=== PATIENT | male | born 1950 | race Caucasian/White ===

== ENCOUNTER 2020-03-22 13:16 | Observation (INO) | payer MEDICARE, OTHER ==
--- NOTE | 2020-03-22 13:37 | ED ---
Upper Extremity HPI - General Chief Complaint: Extremity Injury, Upper Stated Complaint: wrist pain Time Seen by Provider: 03/22/20 13:28 Source: patient, RN notes reviewed Mode of arrival: ambulatory Limitations: no limitations - History of Present Illness Initial Comments: This a 70-year-old male presents emergency Department chief complaint of fall o ff ladder. Patient states is approximate 4 feet up off the ground states that the ladder started shift any fell down onto the ground onto his right wrist. Patient states his happened approximately 90 minutes ago. Denies any head injury no other injuries other than his right wrist. He is [id number]. He states that it's very difficult to move his wrist secondary to pain. - Related Data Allergies Allergy/AdvReac Type Severity Reaction Status Date / Time No Known Allergies Allergy Verified 03/22/20 13:25 Review of Systems ROS Statement: Those systems with pertinent positive or pertinent negative responses have been documented in the HPI. ROS Other: All systems not noted in ROS Statement are negative. Past Medical History Past Medical History: Hypertension Additional Past Medical History / Comment(s): Stroke History of Any Multi-Drug Resistant Organisms: None Reported Past Psychological History: No Psychological Hx Reported Smoking Status: Never smoker Past Alcohol Use History: Daily Past Drug Use History: None Reported General Exam Limitations: no limitations General appearance: alert, in no apparent distress Head exam: Present: atraumatic, normocephalic, normal inspection Neck exam: Present: normal inspection. Absent: tenderness, meningismus, lymphadenopathy Respiratory exam: Present: normal lung sounds bilaterally. Absent: respiratory distress, wheezes, rales, rhonchi, stridor Cardiovascular Exam: Present: regular rate, normal rhythm, normal heart sounds. Absent: systolic murmur, diastolic murmur, rubs, gallop, clicks Extremities exam: Present: other (Right wrist there is moderate swelling, tenderness with palpation pulses equal bilaterally Refill less than 2 seconds there is no proximal forearm tenderness no hand tenderness.) Course Vital Signs 03/22/20 13:23 Temperature 98.2 F Pulse Rate 66 Respiratory 16 Rate Blood Pressure 161/82 O2 Sat by Pulse 98 Oximetry Procedures - Orthopedic Splinting/Casting Injury #1 Side: right Upper Extremity Injury Location: wrist Upper Extremity Immobilizer: sugar tong splint, synthetic pre-padded splint Medical Decision Making - Medical Decision Making Patient was splinted in a sugar tong splint. Patient was evaluated by orthopedics. Patient will be admitted for surgery tomorrow Disposition Clinical Impression: Displaced fracture of distal end of right radius Disposition: ADMITTED IP TO THIS HOSP Condition: Stable Referrals: Nabeel Decker MD [Primary Care Provider] - 1-2 days Time of Disposition: 14:30
[2020-03-22] MEDS ORDERED: HYDROmorphone 0.5 MG/0.5 ML SYRINGE IVP STA ×2 (14:04→15:00)
--- NOTE | 2020-03-22 14:07 | XR ---
EXAMINATION TYPE: XR wrist complete RT DATE OF EXAM: 03/22/2020 COMPARISON: NONE HISTORY: Fall. Pain. TECHNIQUE: 4 views FINDINGS: There is impacted transverse comminuted fracture of the distal radial metaphysis. There is 1 cm posterior displacement of the distal major fragment. There is no dislocation. There is fracture of the ulnar styloid process. There is 12 mm lateral displacement of the radius fracture fragment. IMPRESSION: Impacted displaced comminuted distal radius fracture. Ulnar styloid process fracture.
[2020-03-22] MEDS ORDERED: NALOXONE 0.4 MG/ML 1 ML VIAL IV PRN (14:09)
[2020-03-22] MEDS ORDERED: HYDROmorphone 0.5 MG/0.5 ML SYRINGE IVP PRN (14:09)
[2020-03-22] MEDS ORDERED: ONDANSETRON 4 MG/2 ML VIAL IVP PRN (14:09)
--- NOTE | 2020-03-22 14:22 | P.HPOR ---
History of Present Illness H&P Date: 03/22/20 Chief Complaint: Right distal radius fracture Patient is a 62-year-old male who presented to [facility] in hospital today after falling off a ladder at home. Patient landed on the right side during the fall. Patient had immediate pain and deformity of the right wrist, he reported to the hospital. He denied hitting his head during the fall or losing consciousness. Images and lab tests were done, they demonstrated a comminuted and displaced right distal radius fracture. I was contacted by the emergency room staff about the patient, I then went to the patient in the emergency room. He is resting comfortably at bedside, his is present. Obvious pain and swelling he admits to the right upper extremity. He denies any other orthopedic complaints at this time. He has no previous surgery involving the right upper extremity. Past medical history, he has a history of stroke, he takes a full aspirin for that. Review of Systems Constitutional: Reports as per HPI Past Medical History Past Medical History: Hypertension Additional Past Medical History / Comment(s): Stroke History of Any Multi-Drug Resistant Organisms: None Reported Past Psychological History: No Psychological Hx Reported Smoking Status: Never smoker Past Alcohol Use History: Daily Past Drug Use History: None Reported Medications and Allergies Allergies Allergy/AdvReac Type Severity Reaction Status Date / Time No Known Allergies Allergy Verified 03/22/20 13:25 Physical Examination Right upper extremity: Obvious soft tissue swelling and deformity of the right upper extremity No open lesions are present Sensation to light touch throughout the extremities intact, radial pulses 2+ No pain with palpation around the elbow or shoulder Range of motion of the wrist is limited due to pain Results - Diagnostic results Wrist/Hand x-ray: report reviewed ( x-rays of the wrist demonstrated obvious comminuted and displaced right distal radius fracture ), image reviewed Assessment and Plan Assessment: Displacing comminuted right distal radius fracture Status post fall from 4 feet Other medical comorbidities Plan: I discussed the case with Dr. Yip this including physical exam findings and imaging studies. We will like to proceed with surgical intervention, specifically open reduction internal fixation of the right radius fracture, plan is to proceed with an 03/23/2020 Due to the amount of comminution and displacement, a computed tomography scan of the wrist will be obtained Treatment options were discussed the patient, risk and benefits were discussed the patient, he is in good understanding like to proceed Patient will be admitted to the hospital with plan for surgical intervention on 03/23/2020 Internal medicine will be consulted Pain control, oral and IV as needed Obtain consent Hopeful discharge home tomorrow after surgery Time with Patient: Less than 30
[2020-03-22] MEDS: ONDANSETRON 4 MG/2 ML VIAL IVP STA (14:31)
--- NOTE | 2020-03-22 14:56 | CT ---
EXAMINATION TYPE: CT wrist RT wo con DATE OF EXAM: 03/22/2020 COMPARISON: Today HISTORY: Right wrist pain post trauma CT DLP: 54.1 mGycm Automated exposure control for dose reduction was used. Multiple axial sections were obtained from the mid radius to the distal metacarpals with no contrast. There is impacted comminuted fracture of the distal radial metaphysis. There is transverse fracture t hrough the metaphysis with impaction of the distal fragments. There is 9 mm posterior displacement an d approximate 9 mm of impaction of the distal radius major fragment. There is no dislocation at the r adiocarpal joint. The carpal bones appear intact. The visualized metacarpals are intact. There is non displaced fracture of the ulnar styloid process. There is soft tissue swelling around the carpus. IMPRESSION: Acute impacted displaced comminuted fracture of the distal radius as above. Nondisplaced ulnar styloi d process fracture. No dislocation.
[2020-03-22 16:16] LABS: Basophils % (A) 0 %; Eosinophils # (A) 0.1 k/uL (0-0.7); Eosinophils % (A) 1 %; HCT 42.3 % (39.0-53.0); HGB 13.5 gm/dL (13.0-17.5); Lymphocytes # (A) 0.8 k/uL (1.0-4.8); Lymphocytes % (A) 10 %; MCH 30.6 pg (25.0-35.0); MCV 95.6 fL (80.0-100.0); Monocytes # (A) 0.4 k/uL (0-1.0); Monocytes % (A) 4 %; Neutrophils % (A) 84 %; Platelet Count 275 k/uL (150-450); RBC 4.43 m/uL (4.30-5.90); RDW 13.3 % (11.5-15.5); WBC 8.4 k/uL (3.8-10.6)
[2020-03-22 16:21] LABS: Prothrombin Time 10.2 sec (9.0-12.0)
[2020-03-22] MEDS: HYDROcodone/APAP 5-325MG 1 EACH TAB PO PRN (19:43)
--- NOTE | 2020-03-22 19:56 | P.CONS ---
History of Present Illness - Reason for Consult Consult date: 03/22/20 Medical clearance for surgery and medical management. Requesting physician: Dima Yip - Chief Complaint Distal radius fracture, hypertension, history of CVA with right-sided weakn - History of Present Illness 70-year-old male one of my office patient with past medical history of hypertension, hyperlipidemia, and CVA with slight right-sided weakness who jimmy arently had fallen off a ladder at home and landed on his right side patient developed severe pain and discomfort and swelling of the right wrist had no other orthopedic injury no headache, no last self-consciousness or any Neuro complains. Patient ended up coming to the emergency department at [facility], x-ray showed comminuted right distal radius fracture. Patient was seen or to and admitted to Dr. Yip service he will be going for surgery tomorrow. Patient has been doing very well medically no major complaint lately was seen in the office last time few month ago and has been on minimal medication no cardiac history hemodynamically has been stable. Review of Systems CONSTITUTIONAL: Well-developed no acute respiratory distress. EYES: No icterus sclerae, no conjunctivitis. EARS, NOSE, MOUTH, THROAT, and FACE: No sore throat, lymphadenopathy, carotid bruits or deformity. RESPIRATORY: No SOB cough or wheezes. CARDIOVASCULAR: No CP, Palpitation, PND, Orthopnea, or angina. GASTROINTESTINAL: No Abd pain, Nausea or vomiting, no Diarrhea or constipation, No GI Bleed, no distention or masses. GENITOURINARY: Negative for Hematuria or UTI, no kidney stones. INTEGUMENT/BREAST: Pain and discomfort and swelling in the right wrist area. HEMATOLOGIC/LYMPHATIC: Negative for bleed or purpura. MUSCULOSKELTAL: Negative for Myalgia or arthralgia. NEURLOGICAL: No LOC, Sz or syncope, blurred vision dizziness or abnormality.. History of stroke still have slight residual with weakness of the right side. BEHAVIORAL/PSYCH: Negative. ENDOCRINE: Negative. Past Medical History Past Medical History: Hypertension Additional Past Medical History / Comment(s): Stroke 2018 some right sided weakness History of Any Multi-Drug Resistant Organisms: None Reported Past Psychological History: No Psychological Hx Reported Smoking Status: Never smoker Past Alcohol Use History: Daily Additional Past Alcohol Use History / Comment(s): Drinks 2-3 beers per day Past Drug Use History: None Reported Medications and Allergies Home Medications Medication Instructions Recorded Confirmed Type Ascorbic Acid [Vitamin C] 500 mg PO DAILY 03/22/20 03/22/20 History Atorvastatin [Lipitor] 40 mg PO DAILY 03/22/20 03/22/20 History Calcium Carbonate [Calcium] 600 mg PO DAILY 03/22/20 03/22/20 History Magnesium Oxide 400 mg PO DAILY 03/22/20 03/22/20 History Metoprolol Succinate [Toprol XL] 25 mg PO DAILY 03/22/20 03/22/20 History [place]-3 Fatty Acids/Fish Oil [Fish 1 cap PO DAILY 03/22/20 03/22/20 History Oil 1,000 mg Softgel] Allergies Allergy/AdvReac Type Severity Reaction Status Date / Time No Known Allergies Allergy Verified 03/22/20 15:22 Physical Exam Vitals: Vital Signs Temp Pulse Pulse Resp BP BP Pulse Ox 03/22/20 15:00 97.8 F 100 16 147/85 100 03/22/20 13:23 98.2 F 66 16 161/82 98 Intake and Output 03/22/20 03/22/20 03/22/20 06:59 14:59 22:59 Other: Weight 83.915 kg 83.915 kg General Appearance: Alert, cooperative, no distress, appears stated age. Neck HEENT: Supple, no lymphadenopathy, no thyroid enlargement, no carotid bruits. Lungs: Clear to auscultation without crackles or wheezes no rhonchi, no def ormity. Chest Wall: Chest wall normal expansion with deep inspiration no tenderness and no deformity was found on exam, no costochondral pain or discomfort. Heart: Regular rate and rhythm, S1, S2 normal, no murmur, rub or gallop. Back: Symmetric, no curvature, ROM normal, no CVA tenderness. Abdomen: Soft, non-tender, bowel sounds active all four quadrants, no masses, no organomegaly. Extremities: Significant pain and discomfort and swelling in the distal part of the wrist and the right side and has been in brace so far still able to move his finger positive pulse in the radius artery. Pulses: 2+ and symmetric. Skin: Skin color, texture, tugor normal, no rashes or lesions. Neurologic: Alert oriented x3 cranial nerves II through XII intact, slight weakness in the right side compared to the left side, no abnormal balance or gait. Results CBC & Chem 7: 03/22/20 15:52 03/22/20 15:52 Labs: Abnormal Lab Results - Last 24 Hours (Table) 03/22/20 Range/Units 15:52 Lymphocytes # 0.8 L (1.0-4.8) k/uL Assessment and Plan Assessment: 1 right distal radius fracture: Patient will be going for surgery with Dr. Estrada tomorrow for possible open reduction internal fixation. Continue pain management, continue fluid resuscitation, continue to monitor patient hemodynamic status next 24 hours. 2 clearance for surgery: No absolute contraindication for surgery patient has low risk for complication during and after surgery he is already on metoprolol succinate 25 mg a day which will be continue for now which will reduce cardiovascular complication during after surgery medication will be continue after surgery as well. 3 hypertension: Has been doing well on metoprolol. 4 hyperlipidemia: Continue atorvastatin. 5 BPH: Watch patient for any urinary retention. 6 history of CVA: Still have slight residual of the right side. 7 pain management: We'll continue patient on smaller dose of Dilaudid hydrocodone orally till after surgery. 8 DVT prophylaxis: Knee-high BLAIR hose and Venodyne boots will be use. 9 GI prophylaxis: Patient be on Pepcid 20 mg daily. CODE STATUS: Full code. Dr. Yip thank you much for the consult if I can be any further help to please let me know.
[2020-03-22] MEDS: HYDROmorphone 1 MG/ML 1 ML SYRINGE IVP PRN (20:32)
[2020-03-23] MEDS: HYDROmorphone 1 MG/ML 1 ML SYRINGE IVP PRN ×5 (00:54→22:35)
[2020-03-23] MEDS: FAMOTIDINE 20 MG TAB PO SCH (06:59)
[2020-03-23] MEDS: CALCIUM CARBONATE 500 MG CHEWABLE PO SCH (06:59)
[2020-03-23] MEDS: MAGNESIUM OXIDE 400 MG TAB PO SCH (07:00)
[2020-03-23] MEDS: METOPROLOL SUCCINATE (ER) 25 MG TAB.ER.24H PO SCH (07:01)
[2020-03-23] MEDS: ATORVASTATIN 40 MG TAB PO SCH (07:02)
[2020-03-23] MEDS: HYDROcodone/APAP 5-325MG 1 EACH TAB PO PRN (07:02)
[2020-03-23 07:20] LABS: Basophils % (A) 0 %; Eosinophils # (A) 0.2 k/uL (0-0.7); Eosinophils % (A) 3 %; HCT 43.5 % (39.0-53.0); HGB 14.2 gm/dL (13.0-17.5); Lymphocytes # (A) 1.3 k/uL (1.0-4.8); Lymphocytes % (A) 20 %; MCH 31.3 pg (25.0-35.0); MCHC 32.6 g/dL (31.0-37.0); Mean Platelet Volume 8.2; Monocytes # (A) 0.6 k/uL (0-1.0); Monocytes % (A) 8 %; Neutrophils # (A) 4.5 k/uL (1.3-7.7); Neutrophils % (A) 67 %; Platelet Count 271 k/uL (150-450); RBC 4.53 m/uL (4.30-5.90); RDW 12.9 % (11.5-15.5); WBC 6.7 k/uL (3.8-10.6)
[2020-03-23 07:29] LABS: Albumin 3.6 g/dL (3.5-5.0); Calcium 8.7 mg/dL (8.4-10.2); Potassium 5.1 mmol/L (3.5-5.1); Total Bilirubin 0.6 mg/dL (0.2-1.3); Total Protein 6.4 g/dL (6.3-8.2)
--- NOTE | 2020-03-23 10:49 | P.PN ---
Subjective Progress Note Date: 03/23/20 70-year-old male one of my office patient with past medical history of hypertension, hyperlipidemia, and CVA with slight right-sided weakness who apparently had fallen off a ladder at home and landed on his right side patient developed severe pain and discomfort and swelling of the right wrist had no other orthopedic injury no headache, no last self-consciousness or any Neuro complains. Patient ended up coming to the emergency department at [facility], x-ray showed comminuted right distal radius fracture. Patient was seen or to and admitted to Dr. Yip service he will be going for surgery tomorrow. Patient has been doing very well medically no major complaint lately was seen in the office last time few month ago and has been on minimal medication no cardiac history hemodynamically has been stable. 03/23: Patient is scheduled for open reduction internal fixation right distal radius fracture today with Dr. Yip. Patient denies any new complaints. Vital signs are stable. Blood pressure 121/70, heart rate 61, afebrile, pulse ox 97% on room air. Medication reconciliation has been reviewed. Patient is cleared for discharge following his procedure. Patient will follow-up with Dr. Decker in the office. Objective - Vital Signs Vital signs: Vital Signs Temp 98 F 03/23/20 04:32 Pulse 61 03/23/20 04:32 Resp 18 03/23/20 04:32 BP 121/70 03/23/20 04:32 Pulse Ox 97 03/23/20 04:32 Intake & Output 03/22/20 03/23/20 03/23/20 18:59 06:59 18:59 Weight 83.915 kg Other: # Voids 1 - Exam Review of Systems CONSTITUTIONAL: Well-developed no acute respiratory distress. Denies fever. Denies chills. EYES: No icterus sclerae, no conjunctivitis. EARS, NOSE, MOUTH, THROAT, and FACE: No sore throat, lymphadenopathy, carotid bruits or deformity. RESPIRATORY: No SOB cough or wheezes. CARDIOVASCULAR: No CP, Palpitation, PND, Orthopnea, or angina. GASTROINTESTINAL: No Abd pain, Nausea or vomiting, no Diarrhea or constipation, No GI Bleed, no distention or masses. GENITOURINARY: Negative for Hematuria or UTI, no kidney stones. INTEGUMENT/BREAST: Pain and discomfort and swelling in the right wrist area. HEMATOLOGIC/LYMPHATIC: Negative for bleed or purpura. MUSCULOSKELTAL: Negative for Myalgia or arthralgia. NEURLOGICAL: No LOC, Sz or syncope, blurred vision dizziness or abnormality.. History of stroke still have slight residual with weakness of the right side. BEHAVIORAL/PSYCH: Negative. ENDOCRINE: Negative. Physical Examination: General Appearance: Alert, cooperative, no distress, appears stated age. Neck HEENT: Supple, no lymphadenopathy, no thyroid enlargement, no carotid bruits. Lungs: Clear to auscultation without crackles or wheezes no rhonchi, no deformity. Chest Wall: Chest wall normal expansion with deep inspiration no tenderness and no deformity was found on exam, no costochondral pain or discomfort. Heart: Regular rate and rhythm, S1, S2 normal, no murmur, rub or gallop. Back: Symmetric, no curvature, ROM normal, no CVA tenderness. Abdomen: Soft, non-tender, bowel sounds active all four quadrants, no masses, no organomegaly. Extremities: Pain and discomfort and swelling in the distal part of the wrist on right side with brace so far still able to move his finger positive pulse in the radius artery. Pulses: 2+ and symmetric. Skin: Skin color, texture, tugor normal, no rashes or lesions. Neurologic: Alert oriented x3 cranial nerves II through XII intact, slight weakness in the right side compared to the left side, no abnormal balance or gait. - Labs CBC & Chem 7: 03/23/20 06:11 03/23/20 06:11 Labs: Abnormal Lab Results - Last 24 Hours (Table) 03/22/20 03/23/20 Range/Units 15:52 06:11 Lymphocytes # 0.8 L (1.0-4.8) k/uL BUN 21 H (9-20) mg/dL Creatinine 1.91 H (0.66-1.25) mg/dL Assessment and Plan Plan: 1 right distal radius fracture. Patient is scheduled for ORIF today. Anticipate he will be ready for discharge following procedure. 2 clearance for surgery: No absolute contraindication for surgery patient has low risk for complication during and after surgery he is already on metoprolol succinate 25 mg a day which will be continue for now which will reduce c ardiovascular complication during after surgery medication will be continue after surgery as well. 3 hypertension: Has been doing well on metoprolol. 4 hyperlipidemia: Continue atorvastatin. 5 BPH: Watch patient for any urinary retention. 6 history of CVA: Still have slight residual of the right side. 7 pain management: We'll continue patient on smaller dose of Dilaudid hydrocodone orally till after surgery. 8 DVT prophylaxis: Knee-high BLAIR hose and Venodyne boots will be use. 9 GI prophylaxis: Patient be on Pepcid 20 mg daily. CODE STATUS: Full code. Dr. Yip thank you much for the consult if I can be any further help to please let me know. Discharge plan: Home Impression and plan of care have been directed as dictated by the signing physician. Cee Pool nurse practitioner acting as scribe for signing physician.
[2020-03-23] MEDS ORDERED: LACTATED RINGERS 1,000 ML IV ONE (14:31)
[2020-03-23] MEDS: ONDANSETRON 4 MG/2 ML VIAL IVP STA (14:35)
[2020-03-23] MEDS ORDERED: PHENYLEPHRINE-0.9% NACL SYG 1 MG/10 ML SYRINGE ONE (15:36)
[2020-03-23] MEDS ORDERED: MIDAZOLAM 2 MG/2 ML VIAL ONE (15:36)
[2020-03-23] MEDS ORDERED: fentaNYL (PF) 50 MCG/ML 2 ML AMP ONE (15:36)
[2020-03-23] MEDS ORDERED: SUCCINYLCHOLINE CHLORIDE 100 MG/5 ML SYR IV ONE (15:36)
[2020-03-23] MEDS ORDERED: PROPOFOL 10 MG/ML 20 ML VIAL IV ONE (15:36)
[2020-03-23] MEDS ORDERED: LIDOCAINE 1% INJ 10MG/ML (20 ML MDV) ONE (15:36)
[2020-03-23] MEDS ORDERED: HYDROcodone/APAP 5-325MG 1 EACH TAB PO PRN (17:12)
[2020-03-23] MEDS ORDERED: ACETAMINOPHEN TAB 325 MG TAB PO PRN (17:12)
--- NOTE | 2020-03-23 17:19 | P.OP ---
Date of Procedure: 03/23/20 Preoperative Diagnosis: Right displaced intra-articular distal radius fracture Postoperative Diagnosis: Same Procedure(s) Performed: Open reduction and internal fixation right displaced intra-articular distal radius fracture3 part Implants: Arthrex standard with 3 hole volar plate Anesthesia: ESTER Surgeon: Dima Yip Bird Keeper #1: Ag Banks Estimated Blood Loss (ml): 3 Pathology: none sent Condition: stable Disposition: PACU Indications for Procedure: The patient is a 70-year-old [id number] gentleman who presents after falling 4 feet off a ladder injuring his right wrist. Upon evaluation he was noted of the significantly displaced/comminuted intra-articular right distal radius fracture. He discussion the risks and benefits of operative intervention was made with the patient. He opted to proceed with operative risks to include infection, neurovascular injury, development of blood clots, possible development of nonunion/malunion and need for subsequent procedures was discussed. Informed consent was obtained. Operative Findings: As below Description of Procedure: The patient was brought to the operating room, and after induction of general anesthesia the right upper extremity was prepped and draped in normal fashion. The tourniquet was inflated to 250 mmHg. A 7 cm volar radial incision was then made centered over the flexor carpi radialis. Skin was incised sharply. Subcu tissues were divided bluntly. Electrocautery was used for hemostasis. The [place]ell carpi radialis tendon sheath was then opened and the tendon was gently retracted ulnarly along with the radial artery retracted radially. The underlying fascia was opened. The contents the carpal canal were bluntly dissected and moved ulnarly. Pronator quadratus was elevated off the distal radius. The fracture site was identified and cleaned of clot and debris. This was reduced. A 3 hole volar plate was then provisionally placed with an olive wire and K wire distally to the watershed line. This is verified on the AP and lateral views with fluoroscopy. A 3.5 mm cortical screw was then inserted proximally. The distal pegs were then placed the appropriate drill, of the appropriate length. Proximal row was filled in a similar fashion. This is done with the aid of fluoroscopy. The remaining proximal screw holes were filled with 3.5 mm cortical screws the appropriate length. Good purchase obtained. Final fluoroscopic views to include AP/ PA, and elevated lateral showed adequate reduction of the fracture and articular surface as well as placement of the implant. The wound was irrigated normal saline. The pronator was repaired with simple 3-0 Vicryl suture. The subcu tissues were reapproximated 3-0 Vicryl interrupted sutures. Skin was repaired with 4-0 subcuticular Prolene suture. Steri-Strips were applied. A sterile dressing was applied in addition to a volar splint. The tourniquet was deflated with approximately 60 minutes total tourniquet time. The patient was awoken from general anesthesia and transferred to recovery room in fair condition. Blood loss was estimated 3 mL. No complications were incurred. Sponge and needle counts were correct at the end of the case. Redd CHOWDARY assisted during the major components the case including exposure, fracture reduction, implant placement, and closure.
--- NOTE | 2020-03-23 17:27 | XR ---
Fluoroscopy INDICATION: Pain FINDINGS: Fluoroscopy time: 34 seconds. Images obtained: 3. Images document open reduction internal fixation distal radius IMPRESSIONS: 1. Documentation of fluoroscopy.
--- NOTE | 2020-03-23 17:27 | FL ---
Fluoroscopy INDICATION: Pain FINDINGS: Fluoroscopy time: 34 seconds. Images obtained: 3. IMPRESSIONS: 1. Documentation of fluoroscopy.
[2020-03-23] MEDS ORDERED: ONDANSETRON 4 MG/2 ML VIAL IVP ONE (17:35)
[2020-03-23] MEDS ORDERED: HYDROmorphone 1 MG/ML 1 ML SYRINGE IVP ONE (17:41)
[2020-03-23 19:46] VITALS: RESP 18
[2020-03-24] MEDS: HYDROmorphone 1 MG/ML 1 ML SYRINGE IVP PRN (03:18)
[2020-03-24 05:05] VITALS: BP 140/70; PULSE 83; TEMP 97.8
[2020-03-24] MEDS: FAMOTIDINE 20 MG TAB PO SCH (07:30)
[2020-03-24] MEDS: CALCIUM CARBONATE 500 MG CHEWABLE PO SCH (07:30)
[2020-03-24] MEDS: MAGNESIUM OXIDE 400 MG TAB PO SCH (07:31)
[2020-03-24] MEDS: ATORVASTATIN 40 MG TAB PO SCH (07:31)
[2020-03-24] MEDS: METOPROLOL SUCCINATE (ER) 25 MG TAB.ER.24H PO SCH (07:35)
[2020-03-24] MEDS: HYDROcodone/APAP 5-325MG 1 EACH TAB PO PRN (08:25)
--- NOTE | 2020-03-24 09:18 | P.PN ---
Subjective Progress Note Date: 03/24/20 Principal diagnosis: Status post ORIF right distal radius fracture Patient evaluated at bedside, he is resting comfortably. He notes some discomfort in the right wrist. Denies any chest pain, shortness of breath, fever or chills. Objective - Vital Signs Vital signs: Vital Signs Temp 97.8 F 03/24/20 05:00 Pulse 83 03/24/20 05:00 Resp 18 03/24/20 05:00 BP 140/70 03/24/20 05:00 Pulse Ox 93 L 03/24/20 05:00 Intake & Output 03/23/20 03/24/20 03/24/20 18:59 06:59 18:59 Intake Total 650 890 Output Total 3 Balance 647 890 Intake: IV 650 Intake, IV Titration 50 Amount ceFAZolin 2 gm In Sodium 50 Chloride 0.9% 50 ml @ 100 mls/hr IVPB Q8H TERRI Rx#: [id number] Oral 840 Output: Estimated Blood Loss 3 Other: Voiding Method Toilet Urinal # Voids 2 1 - Exam Right upper extremity: Postoperative splint is in good position and condition. Obvious ecchymosis and soft tissue swelling present in the fingers. Sensory exam to light touch proximal and distal to the splinter intact. The skin is warm to touch. He is able to wiggle the fingers and minimal difficulty. - Labs CBC & Chem 7: 03/23/20 06:11 03/23/20 06:11 Assessment and Plan Assessment: Status post ORIF right distal radius fracture Plan: Pain control, plan for discharge on oral medication Cast instructions were discussed Plan for [facility] at [facility] 2 weeks for x-ray and splint removal
--- NOTE | 2020-03-24 09:20 | P.DS ---
Providers Date of admission: 03/22/20 14:09 Expected date of discharge: 03/24/20 Attending physician: Dima Yip Consults: 03/22/20 14:12 Consult Physician Routine Consulting Provider: Nabeel Decker Reason/Comments: Medical management Do you want consulting provider notified?: Yes Primary care physician: Nabeel Decker [facility] Course: Date of admission: 03/22/2020 Date of discharge: 03/24/2020 Admission diagnosis: Displaced and comminuted right distal radius fracture Discharge diagnosis: Status post ORIF right distal radius fracture Attending physician: Dr. Yip Surgical procedures: Reduction internal fixation right distal radius fracture Brief history: Patient is a 70-year-old male who was admitted to [facility] on 03/22/2020 after falling from a ladder and fracturing his right wrist. He was admitted due to the severity of the fracture with plan for urgent surgical intervention. He was scheduled for surgery on 03/23/2020. Hospital course: Details of patient's surgery can be found in operative report. Patient tolerated the procedure well and was subsequently transported to orthopedic floor. Patient's orthopeidc and medical care was provided daily. Patient had daily laboratory tests performed for evaluation of overall blood counts. Patient was noted to have a relatively uneventful postoperative course. Patient reported satisfactory pain control with oral pain medications by postoperative day 1. Discharge condition/disposition: Patient will be discharged home in stable condition. Discharge medications: Instructions are given on resumption of patient's normal daily medications per primary care recommendation, in addition patient will be prescribed Mok[place] 5 mg/325 mg. Discharge instructions: 1. Do not remove splint, keep covered and dry while showering 2. Elevate often 3. Arm sling as needed 4. Follow up in office at 2 weeks postop with Redd Banks PA-C 5. Follow up with your primary care doctor 7-10 days after discharge. 6. Contact [facility] with any questions, . Procedures: Open reduction internal fixation right distal radius fracture Patient Condition at Discharge: Stable Plan - Discharge Summary New Discharge Prescriptions: New Ibuprofen 800 mg PO Q8H PRN #30 tab PRN Reason: Pain Hydrocodone/Acetaminophen [[place] 5-325] 1 each PO Q6HR PRN #28 tab PRN Reason: Pain Continue [place]-3 Fatty Acids/Fish Oil [Fish Oil 1,000 mg Softgel] 1 cap PO DAILY Calcium Carbonate [Calcium] 600 mg PO DAILY Ascorbic Acid [Vitamin C] 500 mg PO DAILY Metoprolol Succinate [Toprol XL] 25 mg PO DAILY Atorvastatin [Lipitor] 40 mg PO DAILY Magnesium Oxide 400 mg PO DAILY Discharge Medication List Ascorbic Acid [Vitamin C] 500 mg PO DAILY 03/22/20 [History] Atorvastatin [Lipitor] 40 mg PO DAILY 03/22/20 [History] Calcium Carbonate [Calcium] 600 mg PO DAILY 03/22/20 [History] Magnesium Oxide 400 mg PO DAILY 03/22/20 [History] Metoprolol Succinate [Toprol XL] 25 mg PO DAILY 03/22/20 [History] [place]-3 Fatty Acids/Fish Oil [Fish Oil 1,000 mg Softgel] 1 cap PO DAILY 03/22/20 [History] Hydrocodone/Acetaminophen [[place] 5-325] 1 each PO Q6HR PRN #28 tab 03/24/20 [Rx] Ibuprofen 800 mg PO Q8H PRN #30 tab 03/24/20 [Rx] Follow up Appointment(s)/Referral(s): Nabeel Decker MD [Primary Care Provider] - 1 Week Ag Banks PAC [PHYSICIAN CEMENTER MACHINE APPLICATOR] - 2 Weeks Activity/Diet/Wound Care/Special Instructions: Orthopedic discharge instructions: 1. Pain medication as needed 2. Do not remove the splint, keep covered and dry while showering 3. Elevate often 4. Plan for follow-up at [facility] 2 weeks Discharge Disposition: HOME SELF-CARE
--- NOTE | 2020-03-24 12:00 | P.PN ---
Subjective Progress Note Date: 03/24/20 70-year-old male one of my office patient with past medical history of hypertension, hyperlipidemia, and CVA with slight right-sided weakness who apparently had fallen off a ladder at home and landed on his right side patient developed severe pain and discomfort and swelling of the right wrist had no other orthopedic injury no headache, no last self-consciousness or any Neuro complains. Patient ended up coming to the emergency department at [facility], x-ray showed comminuted right distal radius fracture. Patient was seen or to and admitted to Dr. Yip service he will be going for surgery tomorrow. Patient has been doing very well medically no major complaint lately was seen in the office last time few month ago and has been on minimal medication no cardiac history hemodynamically has been stable. 03/23: Patient is scheduled for open reduction internal fixation right distal radius fracture today with Dr. Yip. Patient denies any new complaints. Vital signs are stable. Blood pressure 121/70, heart rate 61, afebrile, pulse ox 97% on room air. Medication reconciliation has been reviewed. Patient is cleared for discharge following his procedure. Patient will follow-up with Dr. Decker in the office. 03/24: Patient underwent open reduction internal fixation right distal radius fracture yesterday with Dr. Yip. He has had no post surgical complications. Blood pressure 140/70, heart rate 83, afebrile, pulse ox 93% on room air. CBC is unremarkable, electrolytes normal, BUN 21 creatinine 1.91, liver function tests normal. Patient is cleared for discharge. Objective - Vital Signs Vital signs: Vital Signs Temp 97.8 F 03/24/20 05:00 Pulse 83 03/24/20 05:00 Resp 18 03/24/20 05:00 BP 140/70 03/24/20 05:00 Pulse Ox 93 L 03/24/20 05:00 Intake & Output 03/23/20 03/24/20 03/24/20 18:59 06:59 18:59 Intake Total 650 890 Output Total 3 Balance 647 890 Intake: IV 650 Intake, IV Titration 50 Amount ceFAZolin 2 gm In Sodium 50 Chloride 0.9% 50 ml @ 100 mls/hr IVPB Q8H [facility] Rx#: [id number] Oral 840 Output: Estimated Blood Loss 3 Other: Voiding Method Toilet Urinal # Voids 2 1 - Exam Review of Systems CONSTITUTIONAL: Well-developed no acute respiratory distress. Denies fever. Denies chills. EYES: No icterus sclerae, no conjunctivitis. EARS, NOSE, MOUTH, THROAT, and FACE: No sore throat, lymphadenopathy, carotid bruits or deformity. RESPIRATORY: No SOB cough or wheezes. CARDIOVASCULAR: No CP, Palpitation, PND, Orthopnea, or angina. GASTROINTESTINAL: No Abd pain, Nausea or vomiting, no Diarrhea or constipation, No GI Bleed, no distention or masses. GENITOURINARY: Negative for Hematuria or UTI, no kidney stones. INTEGUMENT/BREAST: Pain and discomfort and swelling in the right wrist area. HEMATOLOGIC/LYMPHATIC: Negative for bleed or purpura. MUSCULOSKELTAL: Negative for Myalgia or arthralgia. NEURLOGICAL: No LOC, Sz or syncope, blurred vision dizziness or abnormality.. History of stroke still have slight residual with weakness of the right side. BEHAVIORAL/PSYCH: Negative. ENDOCRINE: Negative. Physical Examination: General Appearance: Alert, cooperative, no distress, appears stated age. Neck HEENT: Supple, no lymphadenopathy, no thyroid enlargement, no carotid bruits. Lungs: Clear to auscultation without crackles or wheezes no rhonchi, no deform ity. Chest Wall: Chest wall normal expansion with deep inspiration no tenderness and no deformity was found on exam, no costochondral pain or discomfort. Heart: Regular rate and rhythm, S1, S2 normal, no murmur, rub or gallop. Back: Symmetric, no curvature, ROM normal, no CVA tenderness. Abdomen: Soft, non-tender, bowel sounds active all four quadrants, no masses, no organomegaly. Extremities: Edema to right hand, splint in place, able to move his fingers. Pulses: 2+ and symmetric. Skin: Skin color, texture, tugor normal, no rashes or lesions. Neurologic: Alert oriented x3 cranial nerves II through XII intact, slight weakness in the right side compared to the left side, no abnormal balance or gait. - Labs CBC & Chem 7: 03/23/20 06:11 03/23/20 06:11 Assessment and Plan Plan: 1 right distal radius fracture. Patient underwent ORIF yesterday. He has had no post surgical complications. 2 clearance for surgeryl. 3 hypertension: Has been doing well on metoprolol. 4 hyperlipidemia: Continue atorvastatin. 5 BPH: Watch patient for any urinary retention. 6 history of CVA: Still have slight residual of the right side. 7 pain management: We'll continue patient on smaller dose of Dilaudid hydrocodone orally till after surgery. 8 DVT prophylaxis: Knee-high BLAIR hose and Venodyne boots will be use. 9 GI prophylaxis: Patient be on Pepcid 20 mg daily. 10. COVID-19 infection present. 11. Chronic kidney disease stage III. 12. CODE STATUS: Full code. Dr. Yip thank you much for the consult if I can be any further help to please let me know. Discharge plan: Home today Impression and plan of care have been directed as dictated by the signing physician. Cee Pool nurse practitioner acting as scribe for signing physician.
--- NOTE | 2020-03-27 08:00 | CDI ---
Dear Cee Pool: Please refer to your progress note on 03/24/20 to resolve the conflicting documentation. Patient was tested for Covid-19 and has tested negative but progress notes indicates patient has positive Covid-19 infection. Could you do an addendum to this progress note? -Patient does not have Covid-19. -Patient positive for Covid-19 infection -other: Thank you, Radha Hair. FINGERPRINT TECHNICIAN Coding COVID-19 infection NOT present. MTDD
== END 2020-03-24 10:45 | disposition home or self-care (01) ==
LOC: EC 13:16 → 5NMEDONC 14:09
PROVIDERS: ADMIT Orthopaedic Surgery; ATTEND Orthopaedic Surgery
DX: S52.571A Other intraarticular fracture of lower end of right radius, initial encounter for closed fracture (principal); I12.9 Hypertensive chronic kidney disease with stage 1 through stage 4 chronic kidney disease, or unspecified chronic kidney disease; N18.3 Chronic kidney disease, stage 3 (moderate); W11.XXXA Fall on and from ladder, initial encounter; Y92.009 Unspecified place in unspecified non-institutional (private) residence as the place of occurrence of the external cause; I69.351 Hemiplegia and hemiparesis following cerebral infarction affecting right dominant side; E78.5 Hyperlipidemia, unspecified; N40.0 Benign prostatic hyperplasia without lower urinary tract symptoms; Z79.82 Long term (current) use of aspirin; Z79.899 Other long term (current) drug therapy; Z11.59 Encounter for screening for other viral diseases
CPT/HCPCS: 25609; 29125; 99284; 94760; 80051; 80053; 85025 ×2; 85610; 87635; 73110 ×2; 73200; G0378 ×3; C1713; J2250; J0690 ×2; J2405 ×2; J2001; J3010; J1170 ×4; J2370; J0330; J2704

== ENCOUNTER → 2020-08-20 | Outpatient (CLI) | payer MEDICARE, OTHER | END | disposition home or self-care (01) | LOC: LABPAT 13:50 | PROVIDERS: ATTEND Orthopaedic Surgery | DX: Z01.812 Encounter for preprocedural laboratory examination (principal) | CPT/HCPCS: 87070 ==

== ENCOUNTER 2020-09-01 08:47 | Day surgery (SDC) | payer MEDICARE, OTHER ==
[2020-08-27 13:45] VITALS: BMI 29.8
--- NOTE | 2020-08-31 10:12 | HP ---
HISTORY AND PHYSICAL CHIEF COMPLAINT: Right knee pain. HISTORY OF PRESENT ILLNESS: Patient is a 70-year-old retired gentleman who presents with progressive right knee pain for the past 5 years, worsening over the past 2. He notes anterior and medial pain, worse with prolonged walking and stairs. He notes it limits his normal function and activities. He had previous surgery on that knee in 1999. He has significant renal disease, therefore, does not take anti-inflammatories. PAST MEDICAL HISTORY: Significant for hypertension and renal disease. stroke. PAST SURGICAL HISTORY: Significant for bilateral knee surgery and in addition to prostate surgery. CURRENT MEDICATIONS: Atorvastatin and aspirin. He denies drug allergies. FAMILY HISTORY: Significant for Alzheimer's. SOCIAL HISTORY: Significant for social alcohol use. 16 POINT REVIEW OF SYSTEMS: Otherwise reviewed and is noncontributory. PHYSICAL EXAMINATION: On examination, the patient is approximately 5 foot 6, 185 pounds of mesomorphic habitus. HEENT: Exam is nonfocal. NECK: Supple. He has painless passive motion of the right hip. Straight leg raise is negative. Active motion right knee -10 to 114 degrees of flexion. He has a mild effusion. He is tender about the medial joint line. Collaterals are stable, Jenaro is negative, Lisette's elicits medial pain. His distal neurovascular appears intact in the right lower extremity. X-rays to include weightbearing notch, lateral and Merchant views of the right knee obtained in the office show severe medial compartment osteoarthrosis. IMPRESSION: 1. Right knee severe medial compartment osteoarthrosis. 2. History of renal disease. 3. History of CVA on aspirin. RECOMMENDATIONS: I talked to the patient at length regarding his condition along with treatment options. At this point, he is quite symptomatic despite previous conservative measures. After thorough discussion, he opts to proceed with surgery. We will plan to proceed with right total knee arthroplasty. Risks and benefits were discussed at length in layman's terms. We will reinstitute DVT prophylaxis postoperatively. The patient underwent preoperative medical evaluation and clearance by Dr. Decker. JAHAIRA / ROLLY: [id number] /
[~2020-09-01 08:47] MED LIST: ACETAMINOPHEN TAB 500 MG TAB PO ONE; HYDROmorphone 0.5 MG/0.5 ML SYRINGE IVP PRN; LACTATED RINGERS 1,000 ML IV SCH; LIDOCAINE 1% (10MG/ML) FOR IV START INTRADERMA PRN; MELOXICAM 7.5 MG TAB PO ONE; ONDANSETRON 4 MG/2 ML VIAL IVP ONE; TRANEXAMIC ACID 1,000 MG in SODIUM CHLORIDE 0.9% 100 ML IVPB ONE
[2020-09-01] MEDS ORDERED: DEXAMETHASONE SOD PHOSPHATE 10 MG/ML 1 ML VIAL IV ONE (09:22)
[2020-09-01] MEDS ORDERED: MIDAZOLAM 2 MG/2 ML VIAL IVP ONE (09:28)
--- NOTE | 2020-09-01 09:46 | P.ANPRN ---
Procedure Note - Anesthesia - Nerve Block Performed Right Adductor Canal Infusion Time Out Performed: Yes Date of Procedure: 09/01/20 Procedure Start Time: Procedure Stop Time: Location of Patient: PreOp Indication: Acute Post-Operative Pain, Requested by Surgeon Specifically requested for management of pain by DrRosemary: Dima Yip Sedation Type: Sedate with meaningful contact maintained Position: Supine Catheter: Indwelling Needle Types: Pajunk Needle Gauge: 18 Ultrasound used to visualize needle placement: Yes Ultrasound used to observe medication spread: Yes Injectate: Other (see comment) (20 ml plus decadron 4 mg) Blood Aspirated: No Pain Paresthesia on Injection Noted: No Resistance on Injection: Normal Image Stored and Saved: Yes Events: Uneventful and Well Tolerated
[2020-09-01] MEDS ORDERED: ROPIVACAINE 0.2%-NS ON-Q PUMP 1,090 MG, EMPTY PAIN BALL 1 EACH MISCELLANE PRN (10:16)
[2020-09-01] MEDS ORDERED: diphenhydrAMINE 50 MG/ML 1 ML VIAL ONE (10:37)
[2020-09-01] MEDS ORDERED: SODIUM CHLORIDE 0.9% 100 ML BAG ONE (10:37)
[2020-09-01] MEDS ORDERED: MIDAZOLAM 2 MG/2 ML VIAL ONE (10:37)
[2020-09-01] MEDS ORDERED: fentaNYL (PF) 50 MCG/ML 2 ML AMP ONE (10:37)
[2020-09-01] MEDS ORDERED: TRANEXAMIC ACID 1,000 MG/10 ML VIAL ONE (10:37)
[2020-09-01] MEDS ORDERED: PROPOFOL 10 MG/ML 20 ML VIAL IV ONE (10:37)
[2020-09-01] MEDS ORDERED: ROPIVACAINE 246.25 MG, EPINEPHrine 0.5 MG, KETOROLAC 30 MG, cloNIDine HCL/PF 80 MCG, WA... MISCELLANE ONE ×5 (11:00)
[2020-09-01] MEDS ORDERED: ceFAZolin 3,000 MG in SODIUM CHLORIDE 0.9% IRRIGATIO 3,000 ML IRRIGATION ONE (11:12)
[2020-09-01] MEDS ORDERED: ACETAMINOPHEN TAB 325 MG TAB PO PRN (12:30)
[2020-09-01] MEDS ORDERED: HYDROmorphone 0.5 MG/0.5 ML SYRINGE IVP PRN (12:30)
[2020-09-01] MEDS ORDERED: MAGNESIUM HYDROXIDE 2,400 MG/10 ML CUP PO PRN (12:30)
[2020-09-01] MEDS ORDERED: traMADol 50 MG TAB PO PRN (12:30)
[2020-09-01] MEDS ORDERED: HYDROcodone/APAP 5-325MG 1 EACH TAB PO PRN ×2 (12:30)
[2020-09-01] MEDS ORDERED: ONDANSETRON 4 MG/2 ML VIAL IVP PRN (12:30)
[2020-09-01] MEDS ORDERED: NALOXONE 0.4 MG/ML 1 ML VIAL IV PRN (12:30)
[2020-09-01] MEDS ORDERED: LACTATED RINGERS 1,000 ML IV ONE (12:41)
--- NOTE | 2020-09-01 12:57 | P.OP ---
Date of Procedure: 09/01/20 Preoperative Diagnosis: Right knee severe tricompartmental osteoarthrosis Postoperative Diagnosis: Same Procedure(s) Performed: Right total knee arthroplastycementedposterior stabilized Implants: Depuy Attune size 6 cemented femoral component, size 5 cemented tibial component, 9 mm articular surface, 38 mm cemented patellar component. This is a posterior stabilized implant. Anesthesia: regional, local, spinal Surgeon: Dima Yip Ground Operations Superintendent #1: Ag Banks Estimated Blood Loss (ml): 50 Pathology: other (Bone fragments) Condition: stable Disposition: PACU Indications for Procedure: The patient's a 70-year-old male presents with progressive right knee pain secondary to osteoarthrosis despite conservative measures. A discussion of the risks and benefits of operative intervention versus continued conservative m easures was made with patient. He opted to proceed with surgery. Operative risks to include infection, neurovascular injury, development of blood clots, possible fracture, possible component loosening, possible component failure need for subsequent procedures was discussed. Informed consent was obtained. Operative Findings: As below Description of Procedure: The patient was brought to the operating room, and after induction of spinal anesthesia the right lower extremity was prepped and draped in a normal fashion. The tourniquet was inflated to 270 mm marker. A longitudinal incision extending 3 finger breaths above the superior pole of patella extending to the medial aspect the tibial tubercle was then made. The skin and subcutaneous tissues were divided sharply. Electrocautery was used for hemostasis. A medial parapatellar arthrotomy was performed. The medial soft tissues to include the superficial and deep portions of the medial collateral ligament were elevated subperiosteally. The patella was everted. A portion of the retropatellar fat pad was excised sharply. The anterior cruciate ligament was sacrificed. Blunt retractors were placed. A starting hole was made in the distal femur 1 cm anterior to the posterior cruciate ligament origin. An intramedullary femoral guide was then inserted planning on 5 valgus distal cut with 9 mm distal resection. The cutting block was pinned in place. The distal cut was then made. The posterior referencing sizing guide was utilized. I felt size 6 was most appropriate. 3 of external rotation was built into the system and verified off the trans-epicondylar axis and the posterior condyles. The cutting block was pinned in place. The anterior, posterior, and chamfer cuts then made. Bone fragments were removed. The intercondylar guide was placed and the notch cut was made with a sagittal saw. The bone block was removed in one fragment. The trial component was then placed. There is good anterior to posterior and medial to lateral fit. The distal peg holes were drilled. The trial component was removed. Attention was then paid towards preparing the proximal femur. An extra medullary guide was utilized in line with the tibial shaft and second metatarsal distally. I planned on 2 mm resection from the medial compartment. The cutting block was pinned in place. The proximal tibial cut was then made. The bone was removed in one fragment. The remnants of the medial and lateral menisci were excised at the capsular junction with electrocautery. The tibia sized most appropriately at size 5. The trial femoral and tibial components were placed along with a 9 mm articular surface. I was able to obtain full flexion and extension with internal and external rotation. After several flexion and extension cycles, the tibial rotation was marked with electrocautery line with the medial one third of the tibial tubercle. Attention was then paid towards preparing the patella. A patella reamer was utilized taking stem to 14 mm of bone stock. A good flush cut was made. The patella sized most appropriately 38 mm. The peg holes were drilled. The trial components placed. I had good patellofemoral tracking with no hands technique. The trial components were then removed. The tibia was prepared in the appropriate rotation with appropriate drill and keel punch. The posterior osteophytes were removed with a curved osteotome. The flexion and extension gaps were checked and felt to be symmetric at 9 mm. A trial components were then removed. The posterior soft tissues were injected with ropivacaine. The bony surfaces were prepared with pulsatile lavage and dried. The tibial component was then cemented place was fully seated. Excess cement was removed. The femoral component cemented place and was fully seated. Excess cement was removed. The trial 9 mm articular surface was placed and the knee was put in full extension. The patella component was cemented place. After the cement had sufficiently hardened, the knee was again taken through a range of motion. Again I was able to obtain full flexion and extension with varus and valgus stress. The trial 9 mm articular surface was removed and the final one inserted. This was fully seated. Care was taken to avoid any soft tissue interposition. Pulsatile lavage was again utilized. The medial parapatellar arthrotomy was closed with #2 Ethibond suture. The tourniquet was deflated with approximately 70 minutes total tourniquet time. Final hemostasis was obtained with the cautery. There was minimal bleeding therefore a deep drain was not placed. The subcutaneous tissues were reapproximated with interrupted 2-0 Vicryl sutures. The skin was reapproximated with 3-0 subcuticular strata fix suture. Skin tape and adhesive was applied. A sterile dressing was applied. The patient was awoken from sedation and transferred to recovery room in good condition. Blood loss was estimated at 50 mL. No complications were incurred. Sponge and needle counts were correct at the end of the case. Redd CHOWDARY assisted during the major components of this case to include exposure, bone resection, implantation, and closure.
--- NOTE | 2020-09-01 13:20 | XR ---
Limited right knee HISTORY: Status post right knee arthroplasty 2 views of the right knee Patient is status post right knee arthroplasty. There is anatomic alignment. Lucency is present in th e soft tissues consistent with postop state. IMPRESSION: Orthopedic follow-up.
[2020-09-01] MEDS ORDERED: SENNOSIDES-DOCUSATE SODIUM 1 EACH TAB PO SCH (21:00)
--- NOTE | 2020-09-01 22:52 | P.CONS ---
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 Yip successfully and has been doing very well. Patient is known to have severe arthritis with severe [id number] of the right knee had failed conservative management last few years patient was scheduled for elective right total knee arthroplasty which was done today successfully with no major complication. Patient was started on home meds and continue GI and pulmonary prophylaxis protocol along with DVT prophylaxis. Patient is pain level is well- controlled currently. Review of Systems CONSTITUTIONAL: Well-developed no acute respiratory distress. EYES: No icterus sclerae, no conjunctivitis. EARS, NOSE, MOUTH, THROAT, and FACE: No sore throat, lymphadenopathy, carotid bruits or deformity. RESPIRATORY: No SOB cough or wheezes. CARDIOVASCULAR: No CP, Palpitation, PND, Orthopnea, or angina. GASTROINTESTINAL: No Abd pain, Nausea or vomiting, no Diarrhea or constipation, No GI Bleed, no distention or masses. GENITOURINARY: Negative for Hematuria or UTI, no kidney stones. INTEGUMENT/BREAST: Negative for any muscular injury with mild osteoarthritis.. HEMATOLOGIC/LYMPHATIC: Negative for bleed or purpura. MUSCULOSKELTAL: Negative for Myalgia or arthralgia. NEURLOGICAL: No LOC, Sz or syncope, blurred vision dizziness or abnormality. Significant weakness in the right side compared to the left side.. BEHAVIORAL/PSYCH: Negative. ENDOCRINE: Negative. Past Medical History Past Medical History: Hypertension Additional Past Medical History / Comment(s): Stroke 2018 some right sided weakness History of Any Multi-Drug Resistant Organisms: None Reported Additional Past Surgical History / Comment(s): rt wrist fx with plate, arthroscopic rt knee, lt knee surgery Past Anesthesia/Blood Transfusion Reactions: No Reported Reaction Past Psychological History: No Psychological Hx Reported Smoking Status: Never smoker Past Alcohol Use History: Daily Additional Past Alcohol Use History / Comment(s): Drinks 2-3 beers per day Past Drug Use History: None Reported - Past Family History Mother Family Medical History: No Reported History Medications and Allergies Home Medications Medication Instructions Recorded Confirmed Type Ascorbic Acid [Vitamin C] 500 mg PO DAILY 03/22/20 08/27/20 History Atorvastatin [Lipitor] 40 mg PO DAILY 03/22/20 08/27/20 History Calcium Carbonate [Calcium] 600 mg PO DAILY 03/22/20 08/27/20 History Magnesium Oxide 400 mg PO DAILY 03/22/20 08/27/20 History Metoprolol Succinate [Toprol XL] 25 mg PO DAILY 03/22/20 08/27/20 History [place]-3 Fatty Acids/Fish Oil [Fish 1 cap PO DAILY 03/22/20 08/27/20 History Oil 1,000 mg Softgel] Aspirin [Adult Low Dose Aspirin EC] 81 mg PO DAILY 08/27/20 08/27/20 History Allergies Allergy/AdvReac Type Severity Reaction Status Date / Time No Known Allergies Allergy Verified 09/01/20 08:59 Physical Exam Vitals: Vital Signs Temp Pulse Resp BP Pulse Ox 09/01/20 16:36 115/76 09/01/20 16:00 64 117/55 09/01/20 15:45 62 115/76 09/01/20 15:15 61 114/75 92 L 09/01/20 15:13 63 16 117/78 92 L 09/01/20 15:00 61 16 116/75 93 L 09/01/20 14:45 65 111/70 92 L 09/01/20 14:15 63 114/71 93 L 09/01/20 14:11 97.7 F 64 16 121/77 96 09/01/20 13:30 68 127/75 09/01/20 13:15 97 F L 64 16 123/69 95 09/01/20 13:00 69 16 124/74 96 09/01/20 12:51 97 F L 73 16 126/77 99 09/01/20 09:49 62 16 142/67 98 09/01/20 09:01 97.4 F L 58 L 16 165/78 97 Intake and Output 09/01/20 09/01/20 09/01/20 06:59 14:59 22:59 Intake Total 1151 Output Total 50 Balance 1101 Intake: IV 1151 Output: Estimated Blood Loss 50 Other: # Voids 0 Weight 85 kg General Appearance: Alert, cooperative, no distress, appears stated age. Neck HEENT: Supple, no lymphadenopathy, no thyroid enlargement, no carotid bruits. Lungs: Clear to auscultation without crackles or wheezes no rhonchi, no deformity. Chest Wall: Chest wall normal expansion with deep inspiration no tenderness and no deformity was found on exam, no costochondral pain or discomfort. Heart: Regular rate and rhythm, S1, S2 normal, no murmur, rub or gallop. With mild systolic murmur. Back: Symmetric, no curvature, ROM normal, no CVA tenderness. Abdomen: Soft, non-tender, bowel sounds active all four quadrants, no masses, no organomegaly. Extremities: Extremities normal, atraumatic, no cyanosis or edema. Incision on the right knee looks fine with no bleeding. Pulses: 2+ and symmetric. Skin: Skin color, texture, tugor normal, no rashes or lesions. Neurologic: Alert oriented x3 cranial nerves II through XII intact, positive significant weakness in the right side compared to left side Assessment and Plan Assessment: 1 post right total knee arthroplasty: Resume home meds, continue to watch patient and milligrams extended this, watch for any bleeding, continue GI and pulmonary DVT prophylaxis protocol. 2 hypertension: Blood pressure currently remain well controlled with metoprolol succinate 25 mg daily. 3 CVA with right-sided weakness as a residual no change. 4 BPH: Watch for any urinary retention could arrange for patient to have outpatient supply. 5 stage III chronic kidney disease: With creatinine still at 1.9, patient will continue hydration repeat BUN/creatinine 24 hours. 6 GI prophylaxis: Patient will be on Pepcid 20 mg daily. 7 DVT prophylaxis: Continue also recommendation continue patient on aspirin early mobilization and knee-high BLAIR hose. 8 debility: Started PTOT. CODE STATUS: Full code. Dr. Yip thank you much for the consult for Priyanka any further help to please let me know.
[2020-09-02 06:17] LABS: Basophils % (A) 0 %; Eosinophils % (A) 0 %; HCT 38.9 % (39.0-53.0); HGB 12.9 gm/dL (13.0-17.5); Lymphocytes # (A) 1.2 k/uL (1.0-4.8); Lymphocytes % (A) 8 %; MCH 31.7 pg (25.0-35.0); MCHC 33.1 g/dL (31.0-37.0); Mean Platelet Volume 7.8; Monocytes # (A) 0.9 k/uL (0-1.0); Monocytes % (A) 6 %; Neutrophils % (A) 86 %; Platelet Count 256 k/uL (150-450); RBC 4.05 m/uL (4.30-5.90); RDW 13.6 % (11.5-15.5); WBC 16.2 k/uL (3.8-10.6)
--- NOTE | 2020-09-02 06:21 | P.PN ---
Progress Note - Text Progress Note Date: 09/02/20 POD # 1 s/p right total knee arthroplasty. patient reports great pain control 1- , he denies any excessive numbness or weakness. he denies any signs of local anesthetic toxicity. the catheter insertion site is clean, no redness, swelling or discharge. will keep the catheter in place and the patient will remove it once the on-q pump is empty
[2020-09-02 07:39] VITALS: BP 122/75; PULSE 71; RESP 16; TEMP 98.3
[2020-09-02] MEDS ORDERED: NON FORMULARY DRUG (Omega-3 Fatty Acids/Fish Oil [Fish Oil 1,000 Mg Softgel] 1 EACH Capsul PO SCH (09:00)
[2020-09-02] MEDS ORDERED: METOPROLOL SUCCINATE (ER) 25 MG TAB.ER.24H PO SCH (09:00)
[2020-09-02] MEDS ORDERED: CALCIUM CARBONATE 500 MG CHEWABLE PO SCH (09:00)
[2020-09-02] MEDS ORDERED: MELOXICAM 7.5 MG TAB PO SCH (09:00)
[2020-09-02] MEDS ORDERED: MAGNESIUM OXIDE 400 MG TAB PO SCH (09:00)
[2020-09-02] MEDS ORDERED: ASCORBIC ACID 500 MG TAB PO SCH (09:00)
[2020-09-02] MEDS ORDERED: RIVAROXABAN 10 MG TAB PO SCH (09:00)
[2020-09-02] MEDS ORDERED: ATORVASTATIN 40 MG TAB PO SCH (09:00)
--- NOTE | 2020-09-02 10:25 | P.PN ---
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 Yip successfully and has been doing very well. Patient is known to have severe arthritis with severe [id number] of the right knee had failed conservative management last few years patient was scheduled for elective right total knee arthroplasty which was done today successfully with no major compl ication. Patient was started on home meds and continue GI and pulmonary prophylaxis protocol along with DVT prophylaxis. Patient is pain level is well- controlled currently. 09/02: Patient is postop day #1. He has had no postop complications. Pain is well controlled. Q-pump is in place for pain control. He is reaching 1500 on incentive spirometry. He has been afebrile, heart rate 71, blood pressure 122/75, pulse ox 95% on room air. WBC 16.2, hemoglobin 12.9, platelet count 256. Patient is scheduled for discharge home later today. Medication reconciliation has been reviewed. REVIEW OF SYSTEMS CONSTITUTIONAL: Well-developed no acute respiratory distress. No fever. No chills. EYES: No icterus sclerae, no conjunctivitis. EARS, NOSE, MOUTH, THROAT, and FACE: No sore throat, lymphadenopathy, carotid bruits or deformity. RESPIRATORY: No SOB cough or wheezes. CARDIOVASCULAR: No CP, Palpitation, PND, Orthopnea, or angina. No lightheadedness or dizziness. GASTROINTESTINAL: No Abd pain, Nausea or vomiting, no Diarrhea or constipation, No GI Bleed, no distention or masses. GENITOURINARY: Negative for Hematuria or UTI, no kidney stones. INTEGUMENT/BREAST: Negative for any muscular injury with mild osteoarthritis.. HEMATOLOGIC/LYMPHATIC: Negative for bleed or purpura. MUSCULOSKELTAL: Negative for Myalgia or arthralgia. NEURLOGICAL: No LOC, Sz or syncope, blurred vision dizziness or abnormality. Significant weakness in the right side compared to the left side.. BEHAVIORAL/PSYCH: Negative. ENDOCRINE: Negative. PHYSICAL EXAMINATION General Appearance: Alert, cooperative, no distress, appears stated age. Neck HEENT: Supple, no lymphadenopathy, no thyroid enlargement, no carotid bruits. Lungs: Clear to auscultation without crackles or wheezes no rhonchi, no deformity. Chest Wall: Chest wall normal expansion with deep inspiration no tenderness and no deformity was found on exam, no costochondral pain or discomfort. Heart: Regular rate and rhythm, S1, S2 normal, no murmur, rub or gallop. With mild systolic murmur. Back: Symmetric, no curvature, ROM normal, no CVA tenderness. Abdomen: Soft, non-tender, bowel sounds active all four quadrants, no masses, no organomegaly. Extremities: Extremities normal, atraumatic, no cyanosis or edema. Small dressing in place to the right knee with no breakthrough bleeding or drainage. Pulses: 2+ and symmetric. Skin: Skin color, texture, tugor normal, no rashes or lesions. Neurologic: Alert oriented x3 cranial nerves II through XII intact, positive significant weakness in the right side compared to left side ASSESSMENT AND PLAN 1 post right total knee arthroplasty. Continue current pain management. Continue incentive spirometry to reduce incidence of atelectasis and hospital- acquired pneumonia. He is on Xarelto for DVT prophylaxis.. 2 hypertension: Blood pressure currently remain well controlled with metoprolol succinate 25 mg daily. 3 CVA with right-sided weakness as a residual no change. 4 BPH: Watch for any urinary retention could arrange for patient to have outpatient supply. 5 stage III chronic kidney disease: With creatinine still at 1.9, patient will continue hydration repeat BUN/creatinine 24 hours. 6 GI prophylaxis: Patient will be on Pepcid 20 mg daily. 7 DVT prophylaxis: Continue also recommendation continue patient on aspirin early mobilization and knee-high BLAIR hose. 8 debility: Started PTOT. CODE STATUS: Full code. Dr. Yip thank you much for the consult for Priyanka any further help to please let me know. DISCHARGE PLAN Home Impression and plan of care have been directed as dictated by the signing physician. Cee Pool nurse practitioner acting as scribe for signing physician. Objective - Vital Signs Vital signs: Vital Signs Temp 98.3 F 09/02/20 07:37 Pulse 71 09/02/20 07:47 Resp 16 09/02/20 07:47 BP 122/75 09/02/20 07:37 Pulse Ox 95 09/02/20 07:37 Intake & Output 09/01/20 09/02/20 09/02/20 18:59 06:59 18:59 Intake Total 1151 Output Total 50 Balance 1101 Weight 85 kg Intake: IV 1151 Output: Estimated Blood Loss 50 Other: Voiding Method Toilet Toilet # Voids 0 1 1 - Labs CBC & Chem 7: 09/02/20 05:43 Labs: Abnormal Lab Results - Last 24 Hours (Table) 09/02/20 Range/Units 05:43 WBC 16.2 H (3.8-10.6) k/uL RBC 4.05 L (4.30-5.90) m/uL Hgb 12.9 L (13.0-17.5) gm/dL Hct 38.9 L (39.0-53.0) % Neutrophils # 14.0 H (1.3-7.7) k/uL
--- NOTE | 2020-09-02 11:08 | P.PN ---
Subjective Progress Note Date: 09/02/20 Principal diagnosis: Status post right total knee arthroplasty Patient is evaluated today at bedside, he is resting comfortably. His pain is well-controlled. He's been ambulating well therapy. He denies any chest pain, shortness of breath, fever or chills. Objective - Vital Signs Vital signs: Vital Signs Temp 98.3 F 09/02/20 07:37 Pulse 71 09/02/20 07:47 Resp 16 09/02/20 07:47 BP 122/75 09/02/20 07:37 Pulse Ox 95 09/02/20 07:37 Intake & Output 09/01/20 09/02/20 09/02/20 18:59 06:59 18:59 Intake Total 1151 Output Total 50 Balance 1101 Weight 85 kg Intake: IV 1151 Output: Estimated Blood Loss 50 Other: Voiding Method Toilet Toilet # Voids 0 1 1 - Exam Right lower extremity: Incision is clean, dry, and intact. The exofin fusion tape is in good condition. There is minimal soft tissue swelling and ecchymosis surrounding the medial and lateral aspects of the incision. Calf is soft, no tenderness with palpation. Plantar flexion, dorsiflexion, EHL, FHL are intact. Sensory exam to light touch throughout the extremity is intact, dorsal pedis pulses 2+. - Labs CBC & Chem 7: 09/02/20 05:43 Labs: Abnormal Lab Results - Last 24 Hours (Table) 09/02/20 Range/Units 05:43 WBC 16.2 H (3.8-10.6) k/uL RBC 4.05 L (4.30-5.90) m/uL Hgb 12.9 L (13.0-17.5) gm/dL Hct 38.9 L (39.0-53.0) % Neutrophils # 14.0 H (1.3-7.7) k/uL Assessment and Plan Assessment: Status post right total knee arthroplasty Plan: Pain control, plan for discharge home on oral medication Wound care instructions were discussed DVT prophylaxis, aspirin 325 mg daily Home therapy and nursing Medical recommendations Plan for discharge home today Time with Patient: Less than 30
--- NOTE | 2020-09-02 11:19 | P.DS ---
Providers Date of admission: 09/01/2020 Expected date of discharge: 09/02/20 Attending physician: Dima Yip Consults: 09/01/20 12:30 Consult Physician Routine Consulting Provider: Nabeel Decker Reason/Comments: medical management Do you want consulting provider notified?: Yes Primary care physician: Nabeel Decker [facility] Course: Date of admission: 09/01/2000 Date of discharge: 09/02/2020 Admission diagnosis: Status post right total knee arthroplasty Discharge diagnosis: Same Attending physician: Dr. Yip Surgical procedures: Right total knee arthroplasty Brief history: Patient is a 70-year-old male with a history of progressive primary right knee osteoarthritis. At this point patient has failed conservative treatment measures and has opted to proceed with a elective right total knee arthroplasty. Hospital course: Details of patient's surgery can be found in operative report. Patient tolerated the procedure well and was subsequently transported to [facility] floor. Patient's orthopeidc and medical care was provided daily. Patient had daily laboratory tests performed for evaluation of overall blood counts. Patient had daily physical therapy to include strengthening range of motion as well as education with walker ambulation. Patient was treated with Xarelto for their postoperative DVT prophylaxis during their inpatient stay. Patient was noted to have a relatively uneventful postoperative course. Patient reported satisfactory pain control with oral pain medications by postoperative day 0. Patient showed satisfactory progress with physical therapy. Patient moved steadily through the program and had no difficulty meeting the goals by postoperative day 1. Given patient's otherwise satisfactory course and having met physical therapy goals, plan is to discharge patient home on postoperative day 1. Discharge condition/disposition: Patient will be discharged home in stable condition. Discharge medications: Instructions are given on resumption of patient's normal daily medications per primary care recommendation, in addition patient will be prescribed [place] 5 mg/325 mg, Colace 100 mg, 81 mg aspirin. Discharge instructions: 1. Wound care and infection precautions, keep incision dry and covered while showering, no lotions, creams, moisturizers. No soaking, tubs, pools, hottubs. Do not scrub over the incision. 2. Weight-bear as tolerated with walker / cane until follow-up. 3. Ice and elevate when necessary. Do not exceed 20 minutes per hour with ice pack. 4. Utilize compression sleeve until seen at first follow up appointment. 5. Visiting nursing care. 6. Home physical therapy including home CPM. 7. Pain meds and anticoagulants per prescription. 8. Pain medication has potential to cause constipation. Increase oral fluid and fiber intake. Contact primary care provider if you have not had a bowel movement within 48 hours after discharge 9. No anti-inflammatory medication until discussed at first post operative visit, this including Motrin, Aleve, Mobic, Diclofenac 10. Follow up in office at 2 weeks postop with Redd Banks PA-C 11. Follow up with your primary care doctor 7-10 days after discharge. 12. Contact [facility] with any questions, . Procedures: Right total knee arthroplasty Patient Condition at Discharge: Good Plan - Discharge Summary Discharge Rx Participant: No New Discharge Prescriptions: New Aspirin [Adult Low Dose Aspirin EC] 81 mg PO BID #60 tablet. Docusate [Colace] 100 mg PO DAILY #30 capsule Hydrocodone/Acetaminophen [[place] 5-325] 1 - 2 each PO Q6HR PRN #42 tab PRN Reason: Pain Continue [place]-3 Fatty Acids/Fish Oil [Fish Oil 1,000 mg Softgel] 1 cap PO DAILY Calcium Carbonate [Calcium] 600 mg PO DAILY Ascorbic Acid [Vitamin C] 500 mg PO DAILY Metoprolol Succinate [Toprol XL] 25 mg PO DAILY Atorvastatin [Lipitor] 40 mg PO DAILY Magnesium Oxide 400 mg PO DAILY Discontinued Aspirin [Adult Low Dose Aspirin EC] 81 mg PO DAILY Discharge Medication List Ascorbic Acid [Vitamin C] 500 mg PO DAILY 03/22/20 [History] Atorvastatin [Lipitor] 40 mg PO DAILY 03/22/20 [History] Calcium Carbonate [Calcium] 600 mg PO DAILY 03/22/20 [History] Magnesium Oxide 400 mg PO DAILY 03/22/20 [History] Metoprolol Succinate [Toprol XL] 25 mg PO DAILY 03/22/20 [History] [place]-3 Fatty Acids/Fish Oil [Fish Oil 1,000 mg Softgel] 1 cap PO DAILY 03/22/20 [History] Aspirin [Adult Low Dose Aspirin EC] 81 mg PO BID #60 tablet. 09/02/20 [Rx] Docusate [Colace] 100 mg PO DAILY #30 capsule 09/02/20 [Rx] Hydrocodone/Acetaminophen [[place] 5-325] 1 - 2 each PO Q6HR PRN #42 tab 09/02/20 [Rx] Follow up Appointment(s)/Referral(s): Nabeel Decker MD [Primary Care Provider] - 1 Week [facility], [NON-STAFF] - As Needed Ag Banks PAC [PHYSICIAN VERIFICATION REP] - 2 Weeks Patient Instructions/Handouts: *Surgery [facility] - On-Q Pain Pump Discharge Instructions, Knee Arthroscopy (DC) Activity/Diet/Wound Care/Special Instructions: Resume baby aspirin after completing course of Xarelto. Orthopedic Discharge Instructions: 1. Wound care and infection precautions, keep incision dry and covered while showering, no lotions, creams, moisturizers. No soaking, pools, hot tubs. Do not scrub over incision. 2. Weight-bear as tolerated with walker / cane until follow-up. 3. Ice and elevate when necessary. Do not exceed 20 minutes per hour with ice pack. 4. Utilize compression sleeve until seen at first follow up appointment. 5. Pain meds and anticoagulants per prescription. 6. Pain medication has potential to cause constipation. Increase oral fluid and fiber intake. Contact primary care provider if you have not had a bowel movement within 48 hours after discharge. 7. No anti-inflammatory medication until discussed at first post operative visit, this including Motrin, Aleve, Mobic, Diclofenac. 8. Follow up in office at 2 weeks postop with Redd Banks PA-C 9. Follow up with your primary care doctor 7-10 days after discharge. 10. Contact [facility] with any questions, . Discharge Disposition: HOME WITH HOME HEALTH SERVICES
== END 2020-09-02 13:44 | disposition home health service (06) ==
LOC: OR 08:47 → 4SSUR 12:41 → OR 09-02 13:44
PROVIDERS: ATTEND Orthopaedic Surgery
DX: M17.11 Unilateral primary osteoarthritis, right knee (principal); I12.9 Hypertensive chronic kidney disease with stage 1 through stage 4 chronic kidney disease, or unspecified chronic kidney disease; N18.4 Chronic kidney disease, stage 4 (severe); I69.351 Hemiplegia and hemiparesis following cerebral infarction affecting right dominant side; N40.0 Benign prostatic hyperplasia without lower urinary tract symptoms; Z79.899 Other long term (current) drug therapy; Z81.8 Family history of other mental and behavioral disorders; Z79.82 Long term (current) use of aspirin
CPT/HCPCS: 97110; 97161; 64448; 76942; 85025; 88300; 73560; 27447; C1713; C1776; J2250; J0171; J1200; J1100; J0690 ×3; J2405; J3010; J1885; J2795 ×2; J2704; J0735

== ENCOUNTER → 2023-03-17 | Outpatient (CLI) | payer MEDICARE, OTHER ==
--- NOTE | 2023-03-17 10:42 | MR ---
EXAMINATION TYPE: MR brain and iac wo/w con DATE OF EXAM: 03/17/2023 COMPARISON: None HISTORY: Right sided hearing loss. TECHNIQUE: Multiplanar, multisequence images of the brain and brainstem is performed without and with IV contras t, utilizing 8 mL intravenous Gadavist . FINDINGS: Diffusion weighted images demonstrate no evidence of a recent infarct or other diffusion ab normality. There is mild to moderate generalized degenerative change. There is areas of abnormal sig nal within the white matter bilaterally greater on the left suggestive of remote ischemia. Midline st ructures demonstrate normal morphology. The craniocervical junction appears within normal limits. P ost contrast images demonstrate no abnormal enhancement. The dural venous sinuses appear patent. Ther e is no evidence of cerebellopontine angle mass or acoustic schwannoma. The visualized mild changes of chronic sinusitis and the globes are intact. Mastoid air cells are nicolle ar. Prominent cisterna magna incidentally noted. There is fluid signal in the anterior temporal fossa on the left measuring 1.0 x 1.7 cm. IMPRESSION: 1. No evidence of schwannoma or cerebellopontine angle mass. 2. Prominent cisterna magna is favored versus arachnoid cyst. 3. There is a small arachnoid cyst within the anterior temporal fossa measuring 1.7 x 1 cm. 4. Degenerative change with evidence of remote ischemia as discussed above.
== END | disposition home or self-care (01) ==
LOC: RADMRIMAIN 09:15
PROVIDERS: ATTEND Otolaryngology
DX: H90.A21 Sensorineural hearing loss, unilateral, right ear, with restricted hearing on the contralateral side (principal); I67.82 Cerebral ischemia; G93.89 Other specified disorders of brain
CPT/HCPCS: 70553; A9585